=== PATIENT | female | born 1985 | race Caucasian/White ===

== ENCOUNTER → 2018-03-24 | Outpatient (CLI) | payer OTHER | LOC: M RAD 08:07 | DX: J34.1 Cyst and mucocele of nose and nasal sinus (principal) | CPT/HCPCS: 70486 ==

== ENCOUNTER → 2020-07-05 | Outpatient (CLI) | payer SELFPAY | LOC: M LABSMTC 08:29 | PROVIDERS: ATTEND Pediatrics | DX: Z20.828 Contact with and (suspected) exposure to other viral communicable diseases (principal) ==

== ENCOUNTER → 2020-08-09 | Outpatient (CLI) | payer SELFPAY | LOC: M LABSMTC 08:56 | PROVIDERS: ATTEND Pediatrics | DX: Z20.828 Contact with and (suspected) exposure to other viral communicable diseases (principal) ==

== ENCOUNTER → 2020-10-15 | Outpatient (REF) | LOC: M LABSMTC 11:24 | PROVIDERS: ATTEND Family Medicine | DX: Z20.822 Contact with and (suspected) exposure to COVID-19 (principal) ==

== ENCOUNTER 2020-12-25 08:36 | Outpatient (CLI) | payer OTHER ==
[~2020-12-25] VITALS: Ht 170.2 cm; Wt 100.2 kg
[2020-12-25 08:55] VITALS: BP 135/79
[2020-12-25] MEDS ORDERED: ASPI81CH33 PO (09:01)
[2020-12-25] MEDS ORDERED: NIFE30TA50 PO (09:01)
[2020-12-25] MEDS ORDERED: SYNT75TA PO (09:01)
[2020-12-25] MEDS ORDERED: MAGN400C2 PO ×2 (09:01→09:05)
[2020-12-25] MEDS ORDERED: PRENTAB9 PO (09:01)
[2020-12-25] MEDS ORDERED: RIBO400T PO (09:05)
[2020-12-25] MEDS ORDERED: ACET-897 PO (09:05)
[2020-12-25] MEDS ORDERED: TUMS750C5 PO (09:05)
[2020-12-25 09:59] VITALS: BP 129/74
--- NOTE | 2020-12-25 12:02 | IPNPDOC ---
Text Note Date of Service The patient was seen on 12/25/20. NOTE 35 yo at 38+1 weeks today presented to L&D for ECV attempt. Sanaz reports feeling well today and has no complaints. She denies any contractions, vaginal bleeding, or leakage of fluid. She endorses excellent movement. Vitals - VSS, afebrile, normotensive, non tachycardic General - AAOX3, sitting up in bed, pleasant and conversant, NAD Abdomen - Gravid uterus appropriate size for gestational age. No fundal tenderness. Extremities - No edema. Cervix: Ft/Thick/high FHR tracing - Cat I with moderate variability, +accels, no decels Bedside TAUS ( anatomy not assessed): Viable SIUP in cephalic presentation. Baby cephalic presenting today and thus no ECV was performed. Cervix essentially closed. Will continue with expectant management at this time. I discussed with Sanaz that an IOL at 39 weeks for unstable lie may be prudent. For now she desires to wait and see, which is certainly reasonable. She has follow up in the office in one week. She is to return to care sooner for any contractions, leakage of fluid, bleeding, or decreased movement. All questions answered. 30 minutes of patient care DO SHARAD August Fishbone, I+O Janae OROURKE, I+O Vital Signs Date Time Temp Pulse Resp B/P (MAP) Pulse Ox O2 Delivery O2 Flow Rate FiO2 12/25/20 09:59 98.7 98 20 129/74 (92) 98 Room Air TESSY LOJA DO December 25, 2020 12:02
== END 2020-12-25 10:22 | disposition home or self-care (01) ==
LOC: M LDO 08:36
PROVIDERS: ATTEND Registered Nurse Maternal Newborn
DX: O32.0XX0 Maternal care for unstable lie, not applicable or unspecified (principal); Z3A.38 38 weeks gestation of pregnancy; O09.513 Supervision of elderly primigravida, third trimester
CPT/HCPCS: 59025; G0378; G0463

== ENCOUNTER 2021-01-06 10:52 | Inpatient (IN) | payer OTHER ==
[2021-01-06] VITALS (14 sets, daily range): BP systolic 119–157; BP diastolic 78–102
[~2021-01-06] VITALS: Ht 170.2 cm; Wt 100.4 kg
[~2021-01-06 10:52] MED LIST: ACET-897 PO; ASPI81CH33 PO; MAGN400C2 PO; NIFE30TA50 PO; PRENTAB9 PO; RIBO400T PO; SYNT75TA PO; TUMS750C5 PO
[2021-01-06 11:55] LABS: HEMATOCRIT 40.2 % (36.0-47.0); HEMOGLOBIN 13.8 g/dl (12.0-15.5); MEAN CORPUSCULAR HEMOGLOBIN 32.2 pg (27.0-33.0); MEAN CORPUSCULAR HGB CONC 34.3 g/dl (32.0-36.5); MEAN CORPUSCULAR VOLUME 93.7 fl (80.0-96.0); PLATELET COUNT, AUTOMATED 176 10^3/uL (150-450); RED BLOOD COUNT 4.29 10^6/uL (4.00-5.40); WHITE BLOOD COUNT 12.9 10^3/uL (4.0-10.0)
--- NOTE | 2021-01-06 11:59 | HPEPDOC ---
Obstetrical History & Physical General Date of Admission January 06, 2021 at 10:52 History of Present Illness 35yo presenting from clinic for direct admission for IOL for Oligohydramnio s, CHTN, AMA Chief Complaint: Induction of labor Information Provided By: Patient Age: 35 : 3 Term: 2 Pre-term: 0 Abortions: 0 Livin Care Care: Good Care Dating Final EDC: January 07, 2021 Final EDC for Daily Update: January 07, 2021 Final EDC by: LMP LMP: Apr 02, 2020 1st Trimester Date: Jun 09, 2020 Weeks + Days: 9 (+5) Estimated Date of Confinement: January 07, 2021 EGA at Admission: 39 (+6) Antepartum Course Diagnos(e)s Chronic hypertension, hypothyroidism, AMA, oligohydramnios Height (inches): 67 Pre- weight (lbs.): 175 Admission Weight (lbs.): 225 Change in Weight (lbs.): 50 Past Medical History Past Obstetrical History #1: Past Obstetrical History: Multigravida Date of Delivery: Feb 18, 2013 Gestation: 40 Type of Delivery: Spontaneous Vaginal Del. (8#3) Complications: Yes (ppthyroiditis) Past Obstetrical History #2: Past Obstetrical History: Multigravida Date of Delivery: Nov 08, 2014 Gestation: 40 (+4) Type of Delivery: Spontaneous Vaginal Del. (8#8) Complications: Yes (delayed PPH) ELEMENTARY ELL TEACHER History: Abnormal Pap (colposcopy x3), Human papillomavirus(HPV) Past Medical History Medical History hypertension, hypothyroidism, migraines with aura, abnormal pap, anxiety Surgical History: [place] teeth Family History Family History father- htn, mgm- cancer, mgf-throat cancer, pgm- breast cancer, pgf- stroke Social History Marital Status: Family situation: Spouse/partner home Psychosocial History: Anxiety * Smoker: non-smoker Alcohol: Denies Drugs: denies Abuse Violence Screening Have you been hit/kicked/slapp: No Have you been sexually assault: No Imunizations Tdap status: current Influenza Status: current Allergies Coded Allergies: No Known Allergies (Unverified , 12/25/20) Medications Scheduled Aspirin (Aspirin) 81 Mg Tab.chew, 1 TAB PO DAILY for pain Levothyroxine Sodium (Synthroid) 75 Mcg Tablet, 1 TAB PO DAILY Magnesium Oxide (Magnesium) 400 Mg Capsule, 1 CAP PO BID for constipation Nifedipine (Nifedipine ER) 30 Mg Tablet.er, 1 TAB PO DAILY No.137/Iron/Folic Acd ( Vitamin Tablet) 1 Each Tablet, 1 TAB PO DAILY Riboflavin (Vitamin B2) (Riboflavin) 400 Mg Tablet, 200 MG PO BID Scheduled PRN Calcium Carbonate (Tums) 300 Mg Tab.chew, 2 TAB PO Q6HP PRN for INDIGESTION Physical Examination Physical Examination GENERAL: Alert and oriented times three. BREAST: . ABDOMEN: Gravid and non-tender to touch. FETUS: Is vertex (VTX) by sterile vaginal examination (SVE), fetus is vertex (VTX) by Pa and MAGGIE. HEART RATE: Regular rate and rhythm. LUNGS: Clear to auscultation (CTA). EXTREMITIES: +2 edema with compression stockings on. No clonus. Deep tendon reflexes (DTRs) + 2. Laboratory Data 24H LABS Laboratory Tests 2 01/06/21 11:13: Serology Scanned Report Hepatitis B Testing Pertinent Laboratoy Data Blood Type: A+ RBC Antibody Screen: Negative HIV: Negative Hepatitis B: Negative Rapid Plasma Reagin: Nonreactive Rubella: Immune Varicella: Immune Chlamydia/Gonorrhea: Negative Group B Streptococcus: Negative Cystic Fibrosis: Negative Glucose Tolerance Test: 121 Anatomy Ultrasound Placenta Location: Anterior Normal Anatomy: Yes Placenta Previa: No Vaginal Examination Dilation: 1cm (cervical catheter placed easily with exam and filled to 80/80) Effacement: 50% Station: -3 Cervical Consistency: Medium Cervical Position: Posterior Presentation: Cephalic presentation Position: Vertex (occiput) Assessment Heart Rate (FHR): 140 Variability: Moderate Accelerations: Positive Decelerations: Variable (noted in clinic on NST) Tocometer Contractions: Yes (rare) Duration: less than 60 seconds Strength: palpated as mild, resting tone palp/soft Multi-drug resistant Organism: No history of MDRO Assessment/Plan Assessment Sanaz is a 35-year-old (G)3 para (P)2-0-0-2 at 39+6 weeks by 9+5-week ultrasound. Presents to Labor and Delivery (L&D) for IOL. 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 Diet: regular. Group B Streptococcus (GBS) negative. Labs and intravenous (IV) per unit protocol. Counseled on Pitocin and induction of labor (IOL) and cervical ripening with cervical catheter. Saline lock with cervical ripening. Anticipate normal spontaneous delivery (). C-S as appropriate. SILVERIO SAUCEDA CNM January 06, 2021 11:59
[2021-01-06] MEDS ORDERED: BUTORPHANOL 2 MG/ML INJ (J0595) IV ONE (21:40)
[2021-01-06] MEDS ORDERED: miSOPROStol 50MCG 1/2 TABLET PO ONE (21:40)
[2021-01-06] MEDS ORDERED: PROMETHAZINE INJ 25 MG/ML VIAL (J2550) IV ONE (21:40)
--- NOTE | 2021-01-06 21:43 | IPNPDOC ---
Text Note Date of Service The patient was seen on 01/06/21. NOTE Item Value Date Time White Blood Count 12.9 10^3/uL H 01/06/21 1138 Red Blood Count 4.29 10^6/uL 01/06/21 1138 Hemoglobin 13.8 g/dl 01/06/21 1138 Hematocrit 40.2 % 01/06/21 1138 Mean Corpuscular Volume 93.7 fl 01/06/21 1138 Mean Corpuscular Hemoglobin 32.2 pg 01/06/21 1138 Mean Corpuscular Hemoglobin Concent 34.3 g/dl 01/06/21 1138 Red Cell Distribution Width 14.2 % 01/06/21 1138 Platelet Count 176 10^3/uL 01/06/21 1138 01/06/21 2130 hours assessment. 35 yo AT 39.6 WEEKS IOL FOR OLIGOHYDRAMNIOS, AMA CHTN AND MACROSOMIA. PATIENT HAD HARRISON'S CATHETER 80/80. PRESENTLY CATEGORY 1 STRIP MINIMAL CONTRACTIONS . COOK'S CATHETER REMOVED. EXAMINATION CERVIX POSTERIOR 2 CM SOFT THICK VERTEX OT NOT IN PELVIS. PLAN OF CARE CYTOTEC REEVALUATE 4 HOURS FOR POSSIBLE PITOCIN PATIENT EXPRESSED UNDERSTANDING. VS,Fishbone, I+O VS, Fishbone, I+O Laboratory Tests 01/06/21 11:38 Vital Signs Date Time Temp Pulse Resp B/P (MAP) Pulse Ox O2 Delivery O2 Flow Rate FiO2 01/06/21 20:42 90 134/83 (100) 01/06/21 19:08 18 01/06/21 19:08 98.6 Edison Calderon MD January 06, 2021 21:37
[2021-01-07] VITALS (16 sets, daily range): BP systolic 124–154; BP diastolic 72–98
[2021-01-07] MEDS ORDERED: miSOPROStol 50MCG 1/2 TABLET PO ONE ×2 (06:25→10:45)
[2021-01-07] MEDS: LEVOTHYROXINE 75MCG TABLET (0.075MG) PO SCH (08:34)
[2021-01-07] MEDS: NIFEdipine 30 MG XL TAB PO SCH (08:37)
--- NOTE | 2021-01-07 08:37 | IPNPDOC ---
Obstetrical Progress Note Date of Service January 07, 2021 Subjective Assuming care of this 35yo at 40w0d ega with PNC c/b cHTN, Hypothyroidism, Anxiety and Advanced Maternal Age who is undergoing an IOL. Pt received Cytotec 50mcg po yesterday evening at 22:45 with repeat dose at 06:45 this morning. Pt is GBS negative, Rubella Immune, HIV negative, anterior placenta. Objective Vital Signs Date Time Temp Pulse Resp B/P (MAP) Pulse Ox O2 Delivery O2 Flow Rate FiO2 01/07/21 05:11 97.6 95 16 131/82 (98) Assessment Heart Rate (FHR): 135 Variability: Moderate Accelerations: Positive Decelerations: Variable Heart Rate Tracing: Category II Tocometer Contractions: Yes Frequency: other (Irregular) Assessment and Plan Additional Comments 35yo at 40w0d ega undergoing IOL with Cat II tracing (occasional variable decelerations) who is hemodynamically stable and doing well. - Start Nifedipine 30mg po daily - Synthroid 75mcg po daily - Will repeat assessment at 10:45 with likely repeating Cytotec 50mcg po at that time - All questions answered LIDIA NARAYAN M.D. January 07, 2021 08:37
[2021-01-07 09:20] LABS: ALT/SGPT 21 U/L (12-78); BILIRUBIN,TOTAL 0.4 MG/DL (0.2-1.0); CREATININE FOR GFR 0.68 MG/DL (0.55-1.30); GLOMERULAR FILTRATION RATE > 60.0 (>60); LDH LACTATE DEHYDROGENASE 166 U/L (84-246); URIC ACID 5.5 MG/DL (2.6-6.0)
--- NOTE | 2021-01-07 12:16 | IPNPDOC ---
Obstetrical Progress Note Date of Service January 07, 2021 Subjective 35 yo at 40w0d admitted to L&D for IOL for oligohydramnios, CHTN on nifedipine, and AMA. She reports that she can feel her contractions, however they are not painful. She has supportive family at the bedside. Objective Vital Signs Date Time Temp Pulse Resp B/P (MAP) Pulse Ox O2 Delivery O2 Flow Rate FiO2 01/07/21 08:37 129/86 01/07/21 08:36 96 01/07/21 05:11 97.6 16 Assessment Heart Rate (FHR): 135 Variability: Moderate Accelerations: Present Decelerations: None Tocometer Contractions: Yes Frequency: other (every 3-4 minutes) Sterile Vaginal Examination Dilation: 3 cm (3-4 cm) Effacement (%): 70% Station: -3 Cervical Consistency: Soft Cervical Position: Middle Postion/Presentation: Cephalic presentation Assessment and Plan Age: 35 : 3 Term: 2 Pre-term: 0 Abortions: 0 Livin EGA at Admission: 39 (+6) Weeks & Days 40w0d Group B Streptococcus: Negative Additional Comments I discussed 2 options with the patient, AROM or starting pitocin. I discussed with her that if AROM, there is a higher change of needing a primary section for intolerance, as there is not much amniotic fluid around the baby. I recommended for pitocin with slow increase based as the baby tolerates for adequate contractions. She expresses that she does not want pitocin but she is o pen to thinking about both options. After much time to discuss the options with her spouse, she has decided that she would like to eat lunch and then make her decision in [address] Paez updated on the patient status. HERBIE DIEZ CNM January 07, 2021 12:16
[2021-01-07] MEDS ORDERED: OXYTOCIN DRIP 30 UNITS in IV 1 EA IV SCH ×2 (14:05→19:40)
--- NOTE | 2021-01-07 14:15 | IPNPDOC ---
Obstetrical Progress Note Date of Service January 07, 2021 Subjective 35 yo at 40w0d admitted to L&D for IOL for oligohydramnios, CHTN on nifedipine, and AMA. She remains comfortable with her contractions at this time. She has supportive family at the bedside. She had decided that she would accept pitocin IV to be started. Objective Vital Signs Date Time Temp Pulse Resp B/P (MAP) Pulse Ox O2 Delivery O2 Flow Rate FiO2 01/07/21 08:37 129/86 01/07/21 08:36 96 01/07/21 05:11 97.6 16 Cervical exam is unchanged from previous exam Assessment Heart Rate (FHR): 135 Variability: Moderate Accelerations: Present Decelerations: None Tocometer Contractions: Yes Frequency: regular, other (every 4-5 minutes) Sterile Vaginal Examination Dilation: 3 cm (3-4 cm) Effacement (%): 60% Station: -3 Cervical Position: Posterior Postion/Presentation: Cephalic presentation Assessment and Plan Age: 35 : 3 Term: 2 Pre-term: 0 Abortions: 0 Livin EGA at Admission: 39 (+6) Weeks & Days 40w0d Group B Streptococcus: Negative Anticipate: Vaginal Delivery HERBIE DIEZ CNM January 07, 2021 14:08
[2021-01-07] MEDS: LR 1,000 ML IV SCH ×2 (14:24→22:05)
[2021-01-07] MEDS ORDERED: FENTANYL 2MCG/ML ROPIVACAINE 0.2% IN 0.9% NACL 100ML IVBAG As Ordered ONE (18:21)
[2021-01-07] MEDS ORDERED: LIDOCAINE 1% MDV 50ML VIAL As Ordered ONE (18:58)
--- NOTE | 2021-01-07 19:24 | IPNPDOC ---
Obstetrical Progress Note Date of Service January 07, 2021 Subjective To room for assumption of care at 1700. Patient notes mild pain during contractions otherwise has no concerns. Objective Vital Signs Date Time Temp Pulse Resp B/P (MAP) Pulse Ox O2 Delivery O2 Flow Rate FiO2 01/07/21 17:50 122 137/98 (111) 01/07/21 14:26 18 01/07/21 05:11 97.6 Assessment Variability: Moderate Accelerations: Positive Decelerations: None Heart Rate Tracing: Category I Tocometer Contractions: Yes Frequency: regular Sterile Vaginal Examination Dilation: 4 cm Effacement (%): 70% Station: -2 Cervical Consistency: Soft Cervical Position: Middle Postion/Presentation: Cephalic presentation (by exam) Assessment and Plan Status: Reassuring Anticipate: Vaginal Delivery Additional Comments Assessment at 1700. CAT I tracing, reactive. Regular contractions. SVE /-2. AROM clear. MINISTERIO WORRELL DO January 07, 2021 19:24
--- NOTE | 2021-01-07 19:36 | DNPDOC ---
[facility] Delivery Note Delivery Note DATE OF DELIVERY: 01/07/21 PREDELIVERY DIAGNOSIS: 40+0/7 weeks' gestation and labor. Chronic hypertension on medications. Oligohydraminos. Anxiety. Advanced maternal age. Hypothyroidism. POST DELIVERY DIAGNOSIS: Delivered. First degree perineal laceration. Same as above. PROCEDURE: Spontaneous vaginal delivery, repair of first degree perineal laceration [employer] PILOT: Dr. Josh Worrell DO ANESTHESIA: lidocaine local for repair ESTIMATED BLOOD LOSS: 250 mL. FINDINGS: 3940g, Score 6/8, nuchal cord times 1 loose. DELIVERY SUMMARY: Ms. Gore is a 35yo who was induced for chronic hypertension on medication, oligohydraminos and category 2 antepartum testing. She initially refused induction of labor and decided to proceed yesterday when diagnosed with oligohydraminos. She was induced with a davis balloon, cytotec, and pitocin. She progressed to C/C/+3 and with good maternal effort the head delivered followed by the right anterior shoulder without difficulty. A loose nuchal cord was reduced at the perineum. The baby had spontaneous movement and cry. Cord clamping was delayed 60s. Cord gasses and blood were obtained. The placenta delivered spontaneously with gentle downward traction and was in-tact. 30U pitocin was bolused and bimanual massage performed and the uterus became firm and bleeding scant. A first degree perineal laceration was repaired with 2-0 vicryl in the usual fashion. The uterus remained firm and bleeding scant. There were no complications. The sponge, lap, and needle counts were correct. The patient tolerated the procedure well. JOSH WORRELL DO January 07, 2021 19:36
[2021-01-07] MEDS ORDERED: ACETAMINOPHEN TAB 650MG DOSE (2X325MG) PO PRN (19:40)
[2021-01-07] MEDS ORDERED: DOCUSATE SODIUM 100MG CAPSULE PO PRN (19:40)
[2021-01-07] MEDS ORDERED: IBUPROFEN 600MG TAB PO PRN (19:40)
[2021-01-07] MEDS ORDERED: ACETAMINOPHEN 500 MG TAB PO PRN (19:40)
[2021-01-07] MEDS ORDERED: LIDOCAINE 1% MDV 20ML VIAL INFIL ONE (19:40)
[2021-01-07] MEDS ORDERED: IBUPROFEN 800 MG TAB PO PRN (19:40)
[2021-01-07] MEDS ORDERED: DIBUCAINE 1% OINTMENT 30GM TOP PRN (19:40)
[2021-01-08] MEDS: LEVOTHYROXINE 75MCG TABLET (0.075MG) PO SCH (06:02)
[2021-01-08 06:07] VITALS: BP 106/61
--- NOTE | 2021-01-08 07:11 | IPNPDOC ---
Progress Note Date of Service: January 08, 2021 Day#: 1 Progress Note SUBJECT: Ms. Gore is a 35yo PPD1 who was induced for chronic hypertension on medication, oligohydraminos and category 2 antepartum testing. She initially refused induction of labor and decided to proceed when diagnosed with oligohydraminos. She was induced with a davis balloon, cytotec, and pitocin and had an uncomplicated vaginal delivery. 3940g, Score 6/8, nuchal cord times 1 loose. She has been ambulating, voiding spontaneously without issue and tolerating regular diet. Breast feeding without issue. Reports lochia is like a normal period. Patient is ambulating well. Reports some cramping with . Denies any pain. Voiding and passing flatus without difficulty. She denied n/v/d, cp, sob, malin, visual changes, f/c, heavy vb, urinary sx. OBJECTIVE: VITAL SIGNS: Within normal limits, afebrile. Alert and oriented times three. No increased WOB Heart rate: non-tachycardic Abdomen: Fundus firm at U-2. Soft, NTTP. Minimal lochia. ASSESSMENT: Ms. Gore is a 35yo PPD1 who was induced for chronic hypertension on medication, oligohydraminos and category 2 antepartum t esting. She initially refused induction of labor and decided to proceed when diagnosed with oligohydraminos. She was induced with a davis balloon, cytotec, and pitocin and had an uncomplicated vaginal delivery. 3940g, Score 6/8, nuchal cord times 1 loose. Vitals within normal limits, afebrile, hemodynamically stable with no evidence of infection. PLAN: 1. Discharge to home today. 2. Tylenol and Motrin for pain. 3. Encourage breast feeding and ambulation. 4. Desires interval paragard. 5. Routine PP visit in 6 weeks in clinic. 6. Discussed return precautions at length. VS, I&O, 24H, Fishbone Vital Signs/I&O Vital Signs Date Time Temp Pulse Resp B/P (MAP) Pulse Ox O2 Delivery O2 Flow Rate FiO2 01/08/21 06:07 98.1 77 14 106/61 (76) 01/07/21 20:40 99 Room Air I&O- Last 24 Hours up to 6 AM 01/08/21 06:00 Intake Total 1900 ml Output Total 250 ml Balance 1650 ml Laboratory Data 24H LABS Laboratory Tests 2 01/07/21 08:27: Glomerular Filtration Rate > 60.0, Uric Acid 5.5, Total Bilirubin 0.4, Aspartate Amino Transf (AST/SGOT) 16, Alanine Aminotransferase (ALT/SGPT) 21, Lactate Dehydrogenase 166 01/07/21 08:47: Urine Random Creatinine 133.0, Urine Random Total Protein 15.0H CBC/BMP Laboratory Tests 01/07/21 08:27 MINISTERIO WORRELL DO January 08, 2021 07:10
[2021-01-08] MEDS: LR 1,000 ML IV SCH ×2 (07:36→14:05)
[2021-01-08] MEDS: PRENATAL VITAMINS CHEWABLE TABLET PO SCH (09:08)
[2021-01-08] MEDS: NIFEdipine 30 MG XL TAB PO SCH (09:09)
[2021-01-08 18:00] VITALS: BP 122/73
[2021-01-09] MEDS: LEVOTHYROXINE 75MCG TABLET (0.075MG) PO SCH (05:16)
[2021-01-09 05:48] VITALS: BP 110/76
[2021-01-09] MEDS ORDERED: IBUP80TA PO (07:06)
--- NOTE | 2021-01-09 07:09 | DS.PDOC ---
Discharge Summary General Date of Admission January 06, 2021 at 10:52 Date of Discharge January 09, 2021 Discharge Summary HOSPITAL COURSE: Ms. Gore is a 35 yo G3 now P3 who underwent an uncomplicated on 07Jan2021 after being admitted for an IOL for CHTN Cat II tracing. Her course was unremarkable. On her day of discharge she met all appropriate discharge criteria. She was ambulating, voiding, tolerating a regular diet, and had minimal lochia. DISCHARGE MEDICATIONS: Please see below. ALLERGIES: Please see below. PHYSICAL EXAMINATION ON DISCHARGE: VITAL SIGNS: Please see below. GENERAL: AAOX3, NAD ABDOMINAL EXAMINATION: Fundus firm at U-2. No fundal tenderness EXTREMITIES: No edema PSYCHIATRIC EXAMINATION: Affect appropriate LABORATORY DATA: Please see below. ACTIVITY: Pelvic rest for 6 weeks DIET: Regular DISCHARGE PLAN: Discharge home DISPOSITION: Discharge home on 09Jan2021 DISCHARGE INSTRUCTIONS: 1. Nothing in the vagina for 6 weeks ITEMS TO FOLLOWUP ON ON OUTPATIENT: 1. Call to schedule a visit for 6 weeks post delivery DISCHARGE CONDITION: Stable. TIME SPENT ON DISCHARGE: Greater than 20 minutes. Tessy Hull DO Vital Signs/I&Os Vital Signs Date Time Temp Pulse Resp B/P (MAP) Pulse Ox O2 Delivery O2 Flow Rate FiO2 01/09/21 05:48 98.6 83 17 110/76 (87) 99 Room Air Discharge Medications Scheduled Levothyroxine Sodium (Synthroid) 75 Mcg Tablet, 1 TAB PO DAILY, (Reported) Magnesium Oxide (Magnesium) 400 Mg Capsule, 1 CAP PO BID for constipation, (Reported) Nifedipine (Nifedipine ER) 30 Mg Tablet.er, 1 TAB PO DAILY, (Reported) No.137/Iron/Folic Acd ( Vitamin Tablet) 1 Each Tablet, 1 TAB PO DAILY, (Reported) Riboflavin (Vitamin B2) (Riboflavin) 400 Mg Tablet, 200 MG PO BID, (Reported) Scheduled PRN Calcium Carbonate (Tums) 300 Mg Tab.chew, 2 TAB PO Q6HP PRN for INDIGESTION, (Reported) Ibuprofen (Ibuprofen) 800 Mg Tablet, 800 MG PO Q8HP PRN for PAIN LEVEL 6-10 Allergies Coded Allergies: No Known Allergies (Unverified , 12/25/20) TESSY HULL DO January 09, 2021 07:09
[2021-01-09 08:49] VITALS: BP 110/76
[2021-01-09] MEDS: NIFEdipine 30 MG XL TAB PO SCH (08:49)
[2021-01-09] MEDS: PRENATAL VITAMINS CHEWABLE TABLET PO SCH (08:49)
== END 2021-01-09 10:35 | disposition home or self-care (01) | DRG 806 ==
LOC: M LDI 10:52 → M OBS 01-07 20:38
PROVIDERS: ADMIT Registered Nurse; ATTEND Obstetrics & Gynecology
PROC: 3E0P7GC Introduction of Other Therapeutic Substance into Female Reproductive, Via Natural or Artificial Opening (ICD-10-PCS; 2021-01-06)
PROC: 10E0XZZ Delivery of Products of Conception, External Approach (ICD-10-PCS; principal; 2021-01-07)
PROC: 10907ZC Drainage of Amniotic Fluid, Therapeutic from Products of Conception, Via Natural or Artificial Opening (ICD-10-PCS; 2021-01-07)
PROC: 0HQ9XZZ Repair Perineum Skin, External Approach (ICD-10-PCS; 2021-01-07)
DX: O41.03X0 Oligohydramnios, third trimester, not applicable or unspecified (principal); Z37.0 Single live birth; O10.02 Pre-existing essential hypertension complicating childbirth; Z3A.39 39 weeks gestation of pregnancy; O09.523 Supervision of elderly multigravida, third trimester; O99.284 Endocrine, nutritional and metabolic diseases complicating childbirth; E03.9 Hypothyroidism, unspecified; O36.63X0 Maternal care for excessive fetal growth, third trimester, not applicable or unspecified; O76 Abnormality in fetal heart rate and rhythm complicating labor and delivery; O70.0 First degree perineal laceration during delivery; O69.81X0 Labor and delivery complicated by cord around neck, without compression, not applicable or unspecified

== ENCOUNTER → 2021-06-10 | Outpatient (REF) ==
[~2021-06-10] MED LIST changes: +IBUP80TA PO
== END ==
LOC: M LABSMTC 10:10
PROVIDERS: ATTEND Pediatrics
DX: Z20.822 Contact with and (suspected) exposure to COVID-19 (principal)

== ENCOUNTER → 2021-07-13 | Outpatient (CLI) | payer OTHER ==
[2021-07-13 13:01] LABS: APPEARANCE, URINE HAZY (CLEAR); BACTERIA, URINE AUTO NEGATIVE (NEGATIVE); BILIRUBIN, URINE AUTO NEGATIVE (NEGATIVE); BLOOD, URINE BLOOD NEGATIVE (NEGATIVE); COLOR, URINE YELLOW (YELLOW); GLUCOSE, URINE (UA) AUTO NEGATIVE (NEGATIVE); KETONE, URINE AUTO TRACE mg/dL (NEGATIVE); LEUKOCYTE ESTERASE, URINE AUTO NEGATIVE (NEGATIVE); MUCUS, URINE SMALL (NEGATIVE); NITRITE, URINE AUTO NEGATIVE (NEGATIVE); PROTEIN, URINE AUTO NEGATIVE (NEGATIVE); RBC, URINE AUTO 2 /HPF (0-3); SPECIFIC GRAVITY URINE AUTO 1.027 (1.002-1.035); SQUAMOUS EPITHELIAL CELL UR AU 2 /HPF (0-6); UROBILINOGEN, URINE AUTO 0.2 mg/dL (0.0-2.0); WBC, URINE AUTO 2 /HPF (0-3)
[2021-07-13 13:04] LABS: BASO % 0.5 % (0.0-1.0); EOS # 0.2 10^3/uL (0.0-0.5); EOS % 2.5 % (0.0-3.0); HEMATOCRIT 40.7 % (36.0-47.0); HEMOGLOBIN 13.7 g/dl (12.0-15.5); LYMPH % 32.8 % (24.0-44.0); MEAN CORPUSCULAR HEMOGLOBIN 31.6 pg (27.0-33.0); MEAN CORPUSCULAR HGB CONC 33.7 g/dl (32.0-36.5); MONO # 0.4 10^3/uL (0.0-0.8); MONO % 6.2 % (2.0-8.0); NEUTROPHILS # 3.5 10^3/uL (1.5-8.5); NEUTROPHILS % 57.8 % (36.0-66.0); PLATELET COUNT, AUTOMATED 200 10^3/uL (150-450); RED BLOOD COUNT 4.33 10^6/uL (4.00-5.40)
[2021-07-13 13:37] LABS: ALBUMIN 3.8 GM/DL (3.2-5.2); ALT/SGPT 19 U/L (12-78); BILIRUBIN,TOTAL 0.5 MG/DL (0.2-1.0); BLOOD UREA NITROGEN 11 MG/DL (7-18); CALCIUM LEVEL 9.3 MG/DL (8.5-10.1); CARBON DIOXIDE LEVEL 29 MEQ/L (21-32); CHLORIDE LEVEL 106 MEQ/L (98-107); CHOLESTEROL LEVEL 213 MG/DL (<200); CHOLESTEROL RISK RATIO 2.566 (<5); GLOMERULAR FILTRATION RATE > 60.0 (>60); GLUCOSE, FASTING 90 MG/DL (70-100); HDL CHOLESTEROL 83 MG/DL (>40); LDL CHOLESTEROL 116 MG/DL (<100); NON-HDL-C 130 MG/DL; POTASSIUM SERUM 3.6 MEQ/L (3.5-5.1); SODIUM LEVEL 140 MEQ/L (136-145); TOTAL PROTEIN 7.1 GM/DL (6.4-8.2); TRIGLYCERIDES LEVEL 72 MG/DL (<150)
== END ==
LOC: M WUC 10:17
PROVIDERS: ATTEND Physician Assistant
DX: I10 Essential (primary) hypertension (principal)

== ENCOUNTER → 2021-07-13 | Outpatient (CLI) | payer OTHER ==
[2021-07-13 13:46] LABS: FREE T4 1.19 NG/DL (0.76-1.46); THYROID PEROXIDASE ANTIBODY > 1300.0 U/ML (<60.0)
== END ==
LOC: M WUC 10:19
PROVIDERS: ATTEND Nurse Practitioner Family
DX: E03.9 Hypothyroidism, unspecified (principal); I10 Essential (primary) hypertension

== ENCOUNTER → 2021-08-01 | Outpatient (REF) | LOC: M LABSMTC 11:46 | PROVIDERS: ATTEND Pediatrics | DX: Z20.822 Contact with and (suspected) exposure to COVID-19 (principal) ==

== ENCOUNTER → 2021-10-29 | Outpatient (REF) | payer OTHER ==
[2021-10-29 17:19] LABS: FREE T4 1.06 NG/DL (0.76-1.46); THYROID STIMULATING HORMONE 1.93 uIU/ML (0.358-3.740)
== END ==
LOC: M WUC 15:29
PROVIDERS: ATTEND Nurse Practitioner Family
DX: R06.3 Periodic breathing (principal)

== ENCOUNTER → 2021-12-30 | Outpatient (REF) | payer OTHER ==
[2021-12-30 16:59] LABS: BASO % 0.6 % (0.0-1.0); EOS # 0.1 10^3/uL (0.0-0.5); EOS % 1.6 % (0.0-3.0); HEMATOCRIT 40.5 % (36.0-47.0); HEMOGLOBIN 13.6 g/dl (12.0-15.5); LYMPH # 2.6 10^3/uL (1.5-5.0); MEAN CORPUSCULAR HGB CONC 33.6 g/dl (32.0-36.5); MEAN CORPUSCULAR VOLUME 95.3 fl (80.0-96.0); MONO # 0.4 10^3/uL (0.0-0.8); MONO % 6.9 % (2.0-8.0); NEUTROPHILS # 3.1 10^3/uL (1.5-8.5); NEUTROPHILS % 49.6 % (36.0-66.0); PLATELET COUNT, AUTOMATED 214 10^3/uL (150-450); RED BLOOD COUNT 4.25 10^6/uL (4.00-5.40); WHITE BLOOD COUNT 6.2 10^3/uL (4.0-10.0)
[2021-12-30 17:23] LABS: ALBUMIN 4.1 GM/DL (3.2-5.2); ALT/SGPT 19 U/L (12-78); BILIRUBIN,TOTAL 0.7 MG/DL (0.2-1.0); BLOOD UREA NITROGEN 9 MG/DL (7-18); CARBON DIOXIDE LEVEL 25 MEQ/L (21-32); CHLORIDE LEVEL 104 MEQ/L (98-107); CHOLESTEROL LEVEL 202 MG/DL (<200); CHOLESTEROL RISK RATIO 2.433 (<5); CREATININE FOR GFR 0.63 MG/DL (0.55-1.30); GLOMERULAR FILTRATION RATE > 60.0 (>60); GLUCOSE, FASTING 90 MG/DL (70-100); HDL CHOLESTEROL 83 MG/DL (>40); LDL CHOLESTEROL 106 MG/DL (<100); NON-HDL-C 119 MG/DL; POTASSIUM SERUM 3.6 MEQ/L (3.5-5.1); SODIUM LEVEL 138 MEQ/L (136-145); TOTAL PROTEIN 7.7 GM/DL (6.4-8.2); TRIGLYCERIDES LEVEL 63 MG/DL (<150)
[2021-12-30 17:41] LABS: APPEARANCE, URINE CLEAR (CLEAR); BACTERIA, URINE AUTO NEGATIVE (NEGATIVE); BILIRUBIN, URINE AUTO NEGATIVE (NEGATIVE); BLOOD, URINE BLOOD NEGATIVE (NEGATIVE); COLOR, URINE STRAW (YELLOW); GLUCOSE, URINE (UA) AUTO NEGATIVE (NEGATIVE); KETONE, URINE AUTO NEGATIVE (NEGATIVE); LEUKOCYTE ESTERASE, URINE AUTO NEGATIVE (NEGATIVE); NITRITE, URINE AUTO NEGATIVE (NEGATIVE); PROTEIN, URINE AUTO NEGATIVE (NEGATIVE); RBC, URINE AUTO 0 /HPF (0-3); SPECIFIC GRAVITY URINE AUTO 1.008 (1.002-1.035); SQUAMOUS EPITHELIAL CELL UR AU 0 /HPF (0-6); UROBILINOGEN, URINE AUTO 0.2 mg/dL (0.0-2.0); WBC, URINE AUTO 0 /HPF (0-3)
[2022-01-06 13:43] LABS: C REACTIVE PROTEIN QUANTITATIV < 0.30 MG/DL (0.00-0.30)
[2022-01-06 13:58] LABS: HEPATITIS B SURFACE ANTIGEN NEGATIVE (NEGATIVE)
[2022-01-06 14:24] LABS: HEPATITIS C VIRUS ABY INDEX 0.1 INDEX (<0.8)
[2022-01-06 14:25] LABS: HEPATITIS B CORE ANTIBODY IGM NEGATIVE (NEGATIVE)
[2022-01-06 14:26] LABS: HIV 1&2 SCREEN CENTAUR NEGATIVE (NEGATIVE)
== END ==
LOC: M LAB REF 16:44
PROVIDERS: ATTEND Physician Assistant
DX: I10 Essential (primary) hypertension (principal)

== ENCOUNTER → 2022-01-29 | Outpatient (REF) | payer OTHER ==
[2022-01-29 17:53] LABS: FREE T4 0.97 NG/DL (0.76-1.46); THYROID STIMULATING HORMONE 1.67 uIU/ML (0.358-3.740)
== END ==
LOC: M LAB REF 16:20
PROVIDERS: ATTEND Nurse Practitioner Family
DX: E06.3 Autoimmune thyroiditis (principal)

== ENCOUNTER → 2022-06-24 | Outpatient (REF) ==
[2022-06-24 14:04] LABS: RSV AMPLIFICATION NEGATIVE (NEGATIVE)
== END ==
LOC: M LABSMTC 11:15
PROVIDERS: ATTEND Family Medicine
DX: Z20.822 Contact with and (suspected) exposure to COVID-19 (principal)

== ENCOUNTER → 2022-09-01 | Outpatient (REF) | payer OTHER ==
[2022-09-01 17:28] LABS: THYROID STIMULATING HORMONE 2.114 uIU/ML (0.55-4.78)
[2022-09-01 17:29] LABS: FREE T4 1.44 NG/DL (0.89-1.76)
== END ==
LOC: M LAB REF 16:12
PROVIDERS: ATTEND Nurse Practitioner Family
DX: E06.3 Autoimmune thyroiditis (principal)

== ENCOUNTER → 2023-02-23 | Outpatient (CLI) | payer OTHER ==
[~2023-02-23] MED LIST changes: +NIFE-3 PO; -NIFE30TA50 PO
[2023-02-23 12:59] LABS: THYROID STIMULATING HORMONE 1.62 uIU/ML (0.55-4.78)
[2023-02-23 13:01] LABS: FREE T4 1.35 NG/DL (0.89-1.76)
== END ==
LOC: M WUC 09:59
PROVIDERS: ATTEND Nurse Practitioner Family
DX: E06.3 Autoimmune thyroiditis (principal)

== ENCOUNTER → 2023-05-04 | Outpatient (REF) | payer OTHER ==
[2023-05-04 13:04] LABS: EOS # 0.1 10^3/uL (0.0-0.5); EOS % 3.1 % (0.0-3.0); HEMATOCRIT 41.7 % (36.0-47.0); LYMPH # 1.5 10^3/uL (1.5-5.0); LYMPH % 34.8 % (24.0-44.0); MEAN CORPUSCULAR HGB CONC 33.6 g/dl (32.0-36.5); MEAN CORPUSCULAR VOLUME 92.5 fl (80.0-96.0); MONO # 0.3 10^3/uL (0.0-0.8); MONO % 7.1 % (2.0-8.0); NEUTROPHILS # 2.3 10^3/uL (1.5-8.5); NEUTROPHILS % 53.5 % (36.0-66.0); PLATELET COUNT, AUTOMATED 226 10^3/uL (150-450); RED BLOOD COUNT 4.51 10^6/uL (4.00-5.40); WHITE BLOOD COUNT 4.2 10^3/uL (4.0-10.0)
[2023-05-04 13:08] LABS: APPEARANCE, URINE HAZY (CLEAR); BACTERIA, URINE AUTO NEGATIVE (NEGATIVE); BILIRUBIN, URINE AUTO NEGATIVE (NEGATIVE); BLOOD, URINE BLOOD NEGATIVE (NEGATIVE); COLOR, URINE AMBER (YELLOW); GLUCOSE, URINE (UA) AUTO NEGATIVE (NEGATIVE); KETONE, URINE AUTO TRACE mg/dL (NEGATIVE); LEUKOCYTE ESTERASE, URINE AUTO NEGATIVE (NEGATIVE); MUCUS, URINE MODERATE (NEGATIVE); NITRITE, URINE AUTO NEGATIVE (NEGATIVE); PROTEIN, URINE AUTO NEGATIVE (NEGATIVE); RBC, URINE AUTO 1 /HPF (0-3); SPECIFIC GRAVITY URINE AUTO 1.026 (1.002-1.035); SQUAMOUS EPITHELIAL CELL UR AU 0 /HPF (0-6); UROBILINOGEN, URINE AUTO 0.2 mg/dL (0.0-2.0); WBC, URINE AUTO 0 /HPF (0-3)
[2023-05-04 13:33] LABS: ERYTHROCYTE SEDIMENTATION RATE 15 mm/hr (0-20)
[2023-05-04 13:37] LABS: TOTAL PROTEIN,RANDOM URINE 15.2 MG/DL (0.0-14.0)
[2023-05-04 13:41] LABS: C REACTIVE PROTEIN QUANTITATIV < 0.40 MG/DL (<1.0)
[2023-05-04 13:43] LABS: ALKALINE PHOSPHATASE 50 U/L (46-116); ALT/SGPT 19 U/L (7.0-40); AST/SGOT 13 U/L (<34); BILIRUBIN,TOTAL 0.5 MG/DL (0.3-1.2); BLOOD UREA NITROGEN 9 MG/DL (9-23); CALCIUM LEVEL 9.2 MG/DL (8.5-10.1); CARBON DIOXIDE LEVEL 29 MMOL/L (20-31); CHLORIDE LEVEL 106 MMOL/L (98-107); CREATININE FOR GFR 0.64 MG/DL (0.55-1.30); GLOMERULAR FILTRATION RATE > 60.0 (>60); GLUCOSE, FASTING 108 MG/DL (60-100); POTASSIUM SERUM 3.8 MMOL/L (3.5-5.1); SODIUM LEVEL 142 MMOL/L (136-145); TOTAL PROTEIN 6.9 G/DL (5.7-8.2)
[2023-05-04 13:54] LABS: CREATININE,RANDOM URINE 266.4 MG/DL
[2023-05-05 15:29] LABS: COMPLEMENT C3 106.1 MG/DL (84.0-160.0); COMPLEMENT C4 18.9 MG/DL (12-36)
== END ==
LOC: M SFHCRHEU 09:47
PROVIDERS: ATTEND Internal Medicine Rheumatology
DX: R76.8 Other specified abnormal immunological findings in serum (principal); R21 Rash and other nonspecific skin eruption

== ENCOUNTER → 2023-07-28 | Outpatient (CLI) | payer OTHER | LOC: M RAD 10:50 | PROVIDERS: ATTEND Internal Medicine Rheumatology | DX: R76.8 Other specified abnormal immunological findings in serum (principal); R21 Rash and other nonspecific skin eruption; M25.562 Pain in left knee ==

== ENCOUNTER → 2023-08-19 | Outpatient (CLI) | payer OTHER | LOC: M RAD 13:39 | PROVIDERS: ATTEND Internal Medicine Rheumatology | DX: M25.562 Pain in left knee (principal); M25.462 Effusion, left knee; S83.242A Other tear of medial meniscus, current injury, left knee, initial encounter; M71.22 Synovial cyst of popliteal space [Baker], left knee; X58.XXXA Exposure to other specified factors, initial encounter; Y92.9 Unspecified place or not applicable; Y93.9 Activity, unspecified; Y99.9 Unspecified external cause status ==